=== PATIENT | female | born 2000 | race Caucasian/White ===

== ENCOUNTER 2018-08-13 13:01 | Emergency (ER) | payer OTHER ==
[~2018-08-13] VITALS: Ht 165.1 cm; Wt 49.4 kg
[2018-08-13 13:14] VITALS: Ht 165.1 cm; Wt 49.4 kg
[2018-08-13 16:03] VITALS: BP 133/76
== END 2018-08-13 16:03 | disposition other institution (70) ==
LOC: ED 13:01
DX: S09.90XA Unspecified injury of head, initial encounter (principal); R42 Dizziness and giddiness; M54.2 Cervicalgia; R07.82 Intercostal pain; M25.552 Pain in left hip; M25.551 Pain in right hip; M25.562 Pain in left knee; M25.571 Pain in right ankle and joints of right foot; M54.9 Dorsalgia, unspecified; F31.9 Bipolar disorder, unspecified; W17.89XA Other fall from one level to another, initial encounter; Y93.89 Activity, other specified; Y92.89 Other specified places as the place of occurrence of the external cause; Y99.8 Other external cause status
CPT/HCPCS: J1885

== ENCOUNTER 2018-08-13 13:01 | Emergency (ER) | payer OTHER | END 2018-08-13 16:03 | disposition other institution (70) | LOC: ED 13:01 | DX: Z02.89 Encounter for other administrative examinations (principal) ==